=== PATIENT | male | born 1985 | race Caucasian/White ===

== ENCOUNTER 2019-03-05 17:08 | Outpatient (CLI) | payer OTHER, SELFPAY ==
--- NOTE | 2019-03-05 17:38 | XR_ITS ---
WS: [id number] LEFT ELBOW: 2 VIEW(S) TECHNIQUE: AP and lateral. HISTORY: LIMITED RANGE OF MOTION COMPARISON: None available. No acute fractures or dislocation. No joint effusion. Mild soft tissue edema along the medial epicondyle. No joint effusion. NOTE: Report was unsigned for reason: Ordering provider was edited. Original Signature date and time was: 03/06/19 0945 [facility] XR/XR elbow LT 2V [id number] IMPRESSION: 1. No fracture identified. 2. Soft tissue edema along the medial epicondyle. If pain continues consider f ollow-up radiographs in 5-7 days to evaluate for occult fracture.
== END 2019-03-05 17:09 | disposition home or self-care (01) ==
LOC: RAD 17:16
PROVIDERS: Visit Provider Family Medicine
DX: M25.522 Pain in left elbow (principal); M79.9 Soft tissue disorder, unspecified
CPT/HCPCS: 73070

== ENCOUNTER 2022-09-06 10:42 | Inpatient (IN) | payer MEDICAID, SELFPAY ==
[2022-09-06 10:54] VITALS: BP 142/89; PULSE 85; RESP 18; TEMP 37; O2SAT 99
--- NOTE | 2022-09-06 11:18 | PC.PHAR ---
pt states takes no rx or otc medications
[2022-09-06 11:38] LABS: Basophils # 0.1 10^3/uL (0.0-0.1); Basophils % 0.7 %; Eosinophils # 0.4 10^3/uL (0.0-0.8); Eosinophils % 4.9 %; Hematocrit 47.6 % (42.0-52.0); Hemoglobin 16.7 g/dL (11.7-16.6); Lymphocytes # 2.4 10^3/uL (0.8-4.8); Lymphocytes % 32.9 %; Mean Corpuscular HGB Conc 35.1 g/dL (30.0-36.0); Mean Corpuscular Hemoglobin 31.3 pg (28.0-34.0); Mean Corpuscular Volume 89.3 fl (80-94); Monocytes # 0.8 10^3/uL (0.2-0.9); Neutrophils # 3.69 10^3/uL (1.8-7.7); Neutrophils % 50.1 %; Nucleated Red Blood Cells % 0 %; Platelet Count 205 10^3/cmm (130-400); Red Blood Count 5.33 10^6/uL (4.1-5.3); Red Cell Distribution Width 13.3 % (12.1-15.1); White Blood Count 7.4 10^3/uL (4.0-10.0)
--- NOTE | 2022-09-06 11:47 | ED.C_ITS ---
HPI - Psych General: Chief Complaint: Psychiatric Symptoms Stated Complaint: mhe Time Seen by Provider: 09/06/22 11:02 History of Present Illness: Patient presents to the ER for depression and suicidal ideation. Patient's had multiple thoughts of it but does not have a plan. Patient is admitted drug user to help with his psychiatric illness. Patient should be on medicine but he is not taking it for years. Patient states after he gets done with an inpatient stay here he is going to treatment for his drug addiction to help get clean. Review of Systems General: Reports: 10 or more systems reviewed and unremarkable except in HPI and below PFSH ED PFSH: Family History Other Diabetes Social History Smoking and tobacco status: current every day smoker Alcohol intake: never Substance/Drug Use: current Physical Exam Const: COMMON NORMALS: no acute distress, average body habitus, patient oriented x3, no limitations, healthy appearing, alert and well nourished HENMT: COMMON NORMALS: normocephalic, atraumatic, hearing grossly normal bilaterally, external ears normal and moist oral mucous membranes HEAD & SCALP: normocephalic and atraumatic EXTERNAL EAR: Yes external ears normal Neck/C-Spine: COMMON NORMALS: full ROM, no lymphadenopathy, supple, no mening eal signs, no JVD and Thyroid normal THYROID: Thyroid normal Chest: COMMONS NORMALS: normal inspection of the chest and normal palpation of entire chest wall Resp: COMMON NORMALS: normal respiratory effort, No retractions, No use of accessory muscles and clear to auscultation bilaterally AUSCULTATION: clear to auscultation bilaterally Cardio: COMMON NORMALS: no JVD, regular rate, regular rhythm, S1 normal heart sound present, S2 normal heart sound present, No gallops present (Cardio), No clicks present (Cardio), No murmurs present (Cardio) and No rub (Cardio) RAT E: regular rate RHYTHM: regular rhythm HEART SOUNDS: S1 normal heart sound present and S2 normal heart sound present GI: COMMON NORMALS: Normal to inspection, nondistended, normoactive bowel sounds present, Soft to palpation, non-tender, No hepatosplenomegaly present and no masses PALPATION: Yes Soft to palpation and Yes No hepatosplenomegaly present : COMMON NORMALS: Yes no CVA tenderness BLADDER/KIDNEY EXAM: Yes no CVA tenderness Back/Pelvis: COMMON NORMALS: no CVA tenderness Neuro: COMMON NORMALS: patient oriented x3 SENSORIUM/ORIENTATION: Yes alert MENINGEAL SIGNS: Yes no meningeal signs Course Vital Signs: Vital signs: Vital Signs Temperature 98.6 F 09/06/22 10:54 Pulse Rate 85 09/06/22 10:54 Respiratory Rate 18 09/06/22 10:54 Blood Pressure 142/89 09/06/22 10:54 Pulse Oximetry 99 09/06/22 10:54 Oxygen Delivery Me thod Room Air 09/06/22 10:54 MDM - Psych Medical Decision Making Presents ER with complaints of suicidal ideation. Patient admits to having psychiatric illness and needing to be on medicine but had not taken it for couple years. Patient midst to self-medicating with methamphetamines and marijuana. Patient said is not helping anymore and he wants to go to treatment to get rehab and get help for psychiatric illness. Patient is suicidal but does not have a plan. Dr. Lam was consulted who agrees to take the patient in for further evaluation treatment Differential Diagnosis Likely suicidal ideation; Unlikely acute psychosis, chronic schizophrenia, bipolar disorder, depression, drug-induced psychotic disorder or acute anxiety Medical Records I reviewed the patient's medical records. Lab Data I reviewed the patient's lab results. 09/06/22 11:30 09/06/22 11:30 Laboratory Results WBC 7.4 10^3/uL (4.0-10.0) 09/06/22 11:30 RBC 5.33 10^6/uL (4.1-5.3) H 09/06/22 11:30 Hgb 16.7 g/dL (11.7-16.6) H 09/06/22 11:30 Hct 47.6 % (42.0-52.0) 09/06/22 11:30 MCV 89.3 fl (80-94) 09/06/22 11:30 MCH 31.3 pg (28.0-34.0) 09/06/22 11:30 MCHC 35.1 g/dL (30.0-36.0) 09/06/22 11:30 RDW 13.3 % (12.1-15.1) 09/06/22 11:30 Plt Count 205 10^3/cmm (130-400) 09/06/22 11:30 MPV 10.0 fL (7.4-10.4) 09/06/22 11:30 Neut % (Auto) 50.1 % 09/06/22 11:30 Lymph % (Auto) 32.9 % 09/06/22 11:30 [place] % (Auto) 11.0 % 09/06/22 11:30 Eos % (Auto) 4.9 % 09/06/22 11:30 Baso % (Auto) 0.7 % 09/06/22 11:30 Neut # (Auto) 3.69 10^3/uL (1.8-7.7) 09/06/22 11:30 Lymph # (Auto) 2.4 10^3/uL (0.8-4.8) 09/06/22 11:30 [place] # (Auto) 0.8 10^3/uL (0.2-0.9) 09/06/22 11:30 Eos # (Auto) 0.4 10^3/uL (0.0-0.8) 09/06/22 11:30 Baso # (Auto) 0.1 10^3/uL (0.0-0.1) 09/06/22 11:30 Nucleated RBC % (auto) 0 % 09/06/22 11:30 Nucleated RBCs # 0.0 /100WBC 09/06/22 11:30 Sodium 139 mmol/L (136-145) 09/06/22 11:30 Potassium 4.3 mmol/L (3.5-5.1) 09/06/22 11:30 Chloride 104 mmol/L (98-107) 09/06/22 11:30 Carbon Dioxide 25 mmol/L (22-29) 09/06/22 11:30 Anion Gap 14.3 (5-19) 09/06/22 11:30 BUN 11 mg/dL (6-20) 09/06/22 11:30 Creatinine 0.9 mg/dL (0.7-1.2) 09/06/22 11:30 GFR Calculation 96.0 mL/min (90-130) 09/06/22 11:30 Glucose 84 mg/dL (65-115) 09/06/22 11:30 Calculated Osmolality 287 mOsm/kg (285-295) 09/06/22 11:30 Calcium 9.2 mg/dL (8.5-10.5) 09/06/22 11:30 Total Bilirubin 0.4 mg/dL (0.15-1.2) 09/06/22 11:30 AST 19 U/L (0-40) 09/06/22 11:30 ALT 34 U/L (0-41) 09/06/22 11:30 Alkaline Phosphatase 104 U/L (40-130) 09/06/22 11:30 Total Protein 7.1 g/dL (6.6-8.7) 09/06/22 11:30 Albumin 4.3 g/dL (3.5-5.2) 09/06/22 11:30 Globulin 2.8 g/dL (1.3-4.6) 09/06/22 11:30 Salicylates < 0.3 mg/dL (3-10) L 09/06/22 11:30 Acetaminophen < 5.0 ug/mL (10-30) L 09/06/22 11:30 Ethyl Alcohol < 10 mg/dL (0-10) 09/06/22 11:30 Discharge Plan Discharge Patient Disposition: Admitted As Inpatient Clinical Impression: Suicidal ideation Condition: Stable Coding Level of Care Code ED [employer] [facility]
[2022-09-06 12:05] LABS: Alanine Aminotransferase 34 U/L (0-41); Albumin Level 4.3 g/dL (3.5-5.2); Alkaline Phosphatase 104 U/L (40-130); Anion Gap 14.3 (5-19); Aspartate Amino Transferase 19 U/L (0-40); Blood Urea Nitrogen 11 mg/dL (6-20); Calcium 9.2 mg/dL (8.5-10.5); Carbon Dioxide 25 mmol/L (22-29); Chloride 104 mmol/L (98-107); Globulin 2.8 g/dL (1.3-4.6); Glucose 84 mg/dL (65-115); Osmolality Calculated 287 mOsm/kg (285-295); Potassium 4.3 mmol/L (3.5-5.1); Sodium 139 mmol/L (136-145); Total Bilirubin 0.4 mg/dL (0.15-1.2); Total Protein 7.1 g/dL (6.6-8.7)
[2022-09-06 12:08] LABS: Acetaminophen < 5.0 ug/mL (10-30); Alcohol Level < 10 mg/dL (0-10); Salicylate < 0.3 mg/dL (3-10)
[2022-09-06] MEDS: LORazepam 1 mg Tablet PO (12:47)
[2022-09-06 15:25] VITALS: BP 119/75; PULSE 71; RESP 18; O2SAT 98
[2022-09-06 15:31] LABS: Add Urine Microscopic? NO; Charge for UA Resulting for Rev
[2022-09-06 15:38] LABS: Bilirubin Urine Neg (Negative); Blood Urine Neg (Negative); Glucose Urine UA Norm (Normal); Ketones Urine Negative (Negative); Leukocyte Esterase Urine Negative (Negative); Nitrate Urine Negative (Negative); Protein Urine Neg (Negative); Specific Gravity, Urine 1.025 (1.005-1.030); Urine Appearance Clear (CLEAR); Urine Color Yellow (Yellow); Urobilinogen Urine Norm (Negative); pH Urine 5 (5-7)
[2022-09-06 15:51] LABS: Amphetamines Screen Urine Positive (Negative); Barbiturates Screen Urine Negative (Negative); Benzodiazepines Screen Urine Negative (Negative); Cocaine Screen Urine Negative (Negative); Opiate Screen Urine Negative (Negative); PCP Screen Urine Negative (Negative); THC Screen Urine Negative (Negative)
[2022-09-06 15:56] VITALS: BP 111/75; PULSE 73; RESP 16; TEMP 36.6; O2SAT 98
--- NOTE | 2022-09-06 16:46 | PC.NURSE ---
PT ARRIVED TO OUR ED WITH THOUGHTS OF HARMING HIMSELF. PT ADMITS TO STRUGGLING WITH METH ABUSE. PT STATES HE HAS BEEN HAVING TROUBLE TRYING TO KEEP HIS ANXIETY UNDER CONTROL WHILE TRYING TO STOP USING. PT STATES THAT HE STOPPED USING MARIJUANA A FEW MONTHS AGO AND BELIEVES THIS IS THE REASON HIS ANXIETY IN WORSE. PT ALSO ENDORSES AH/VH AFTER AN ANXIETY ATTACK OR AT NIGHT.
[2022-09-06] MEDS: propranolol 20 mg Tablet PO (16:56)
--- NOTE | 2022-09-06 16:56 | PC.NURSE ---
PRN INDERAL 20 MG GIVEN PO PER PT C/O STATED ANXIETY
[2022-09-06 20:07] VITALS: BP 106/64; PULSE 63; RESP 18; TEMP 36.9; O2SAT 98
[2022-09-06] MEDS: trazodone 50 mg Tablet PO (21:40)
[2022-09-06] MEDS: ibuprofen 600 mg Tablet PO (21:40)
[2022-09-07] MEDS: propranolol 20 mg Tablet PO ×2 (02:00→22:07)
[2022-09-07 06:00] VITALS: BP 97/63; PULSE 69; RESP 18; TEMP 36.6; O2SAT 99
[2022-09-07] MEDS: OLANZapine 5 mg ODT PO ×2 (10:03→16:14)
--- NOTE | 2022-09-07 11:49 | P.NPUHP_ITS ---
Providers/Chief Complaint Admitting Physician: Reginaldo Scales MD Chief Complaint: hallucinations HPI NPU History of Present Illness Erick Garcia is a 37 year old white male who had presented to the em ergency department with complaints of depression, auditory hallucinations, and infrequent suicidal thoughts. The patient was admitted to the neuropsychiatric unit for further evaluation and treatment. The patient reports that he has been using methamphetamine for the past 12 years. He describes every day use and states that he has had significant problems from its continued use. He states that he has been hearing voices telling him to run away for several months. He also reports having had increased panic attacks beginning approximately 2 years ago. He states that these panic attacks are uncued and present with associated chest pain, shortness of breath ,difficulties with breathing, numbing and tingling in his fingers and strong feelings as if he were going to . He reports these events last approximately 20 to 30 minutes. He also endorses having periods of intense paranoia associated with his methamphetamine use. Furthermore, he endorses having worsening depression with increased feelings of hopelessness and worthlessness with complaints of low energy and low motivation that has been exacerbated by his chronic use of methamphetamine. He reports having an extended history of problems with ADHD and endorses a past history of ADHD symptoms including inattention and difficulties with poor frustration tolerance and completing tasks in a timely fashion. He reports being historically disorganized and frequently bored. He had reported that he had felt overwhelmed recently and stated that he needed to help immediately to avoid eventually harming himself or killing himself. Inpatient psychiatric history:None reported Outpatient psychiatric history: He had reported having treatment for ADHD in his early adolescence with medication trials including extended release Ritalin and Adderall and short acting Ritalin in the past. He reported that he discontinued these medications many years ago. Drug and alcohol history: He had reported chronic marijuana use for several years beginning in adolescence and reported a history of methamphetamine use beginning approximately 12 years ago. He denies any alcohol history. He reports no prior history of drug or alcohol treatment either inpatient or outpatient. Allergies: Bactrim, trimethoprim, BuSpar, hydroxyzine Surgeries: Left biceps tendon tear, gallbladder removal Medical history: None reported Medications: None Legal history: He had reported that he had been caught with methamphetamine in his urine that had led to him receiving a 7 to 8-day incarceration as children and families are involved in his care of his children. He has no history of nursing home time reported. Developmental history: He has a history of a learning disability Social history: The patient grew up in [place] [facility] [place] and was raised by his medardo narinder parents. He has 3 siblings 1 of whom had when the patient was only 10 years old. He had reported no history of sexual physical or emotional abuse. He had reported having problems with getting into fights in school and stated that he had been treated for ADHD. 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 This is the patient's first marriage. Meds NPU Home Medications Medication Instructions Recorded Confirmed Last Taken Type No Known Home Medications 09/06/22 09/06/22 Unknown History Allergies Allergy/AdvReac Type Severity Reaction Status Date / Time sulfamethoxazole Allergy Unknown UNKNOWN Verified 02/24/19 17:42 [From Bactrim] trimethoprim [From Bactrim] Allergy Unknown UNKNOWN Verified 02/24/19 17:42 buspirone [From BuSpar] Allergy ALGY-Hives Verified 09/06/22 11:17 hydroxyzine Allergy ALGY-Hives Verified 09/06/22 11:17 PFSH NPU PFSH: Family History Other Diabetes Social History Smoking and tobacco status: current every day smoker Alcohol intake: never Substance/Drug Use: current Mental Status Exam MSE Comments: This is a casually dressed white male who appeared his stated age. His gait was within normal limits and his hygiene was fair. There was no evidence of any abnormal involuntary motor movements tics or tremors appreciated. He had fair eye contact. He had described his mood as depressed. His affect was restricted in range and mood congruent. There was evidence of moderate psychomotor retardation noted. His speech was monotone in quality and normal in regards to rate and volume. His attention span was poor. He had endorsed passive suicidal ideation. He denied any homicidal ideation. He had endorsed auditory hallucinations telling him to run away. He did not appear to be responding to internal stimuli actively. There was no clear evidence of delusional thinking. His recent and remote memory appeared grossly intact. His insight was limited. His judgment was poor. His impulse control appeared poor as well. Vitals/I&O/Wt Last Vital Signs Temp 97.9 F 09/07/22 06:00 Pulse 69 09/07/22 06:00 Resp 18 09/07/22 06:00 BP 97/63 09/07/22 06:00 Pulse Ox 99 09/07/22 06:00 O2 Del Method Room Air 09/06/22 15:57 Data NPU 09/06/22 11:30 09/06/22 11:30 A&P Assessment and plan (1) Methamphetamine-induced psychotic disorder: (2) Suicidal ideation: (3) Methamphetamine dependence: (4) Methamphetamine-induced depressive disorder: (5) Anxiety disorder, unspecified: Plan 37-year-old white male with extended history of methamphetamine abuse with significant psychiatric symptoms that appear to be manifested from chronic use including depression anxiety and auditory hallucinations. He would likely benefit from continued inpatient hospital stay. 1. Engage patient in individual, group and milieu therapy. ?2.Recommend sober living treatment at the highest level of care to which the patient is willing to commit. 3.Continue q-15 minute checks for safety.? 4. Initiate abilify 5mg daily to target hallucinations. Will initiate lexapro 10mg to target anxiety as well beginning tommorow. Attestations NPU 2 Medical Necessity Statement*: Inpatient hospitalization is medically necessary and deemed to be the clinically appropriate intervention at this time. We will monitor and initiate medications while making changes as indicated. He will be in the hospital for over 2 midnights. His likely length of stay is 5 to 7 days. Coding Level of Care Code Acute Code for [facility] Fw Diagnoses Methamphetamine-induced psychotic disorder F15.959 Suicidal ideation R45.851 Methamphetamine dependence F15.20 Methamphetamine-induced depressive disorder F15.94 Anxiety disorder, unspecified F41.9
[2022-09-07 14:00] VITALS: BP 110/63; PULSE 64; RESP 16; TEMP 36.6; O2SAT 98
[2022-09-07] MEDS: ARIPiprazole 10 mg Tablet 5 MG PO (16:06)
[2022-09-07 20:42] VITALS: BP 109/67; PULSE 90; RESP 18; TEMP 36.8; O2SAT 98
[2022-09-07] MEDS: trazodone 50 mg Tablet PO (22:07)
[2022-09-07] MEDS: ibuprofen 600 mg Tablet PO (22:07)
[2022-09-08 06:00] VITALS: BP 104/67; PULSE 62; RESP 18; O2SAT 97
[2022-09-08] MEDS: ARIPiprazole 10 mg Tablet 5 MG PO (08:36)
[2022-09-08] MEDS: propranolol 20 mg Tablet PO (08:38)
[2022-09-08] MEDS: sertraline 50 mg Tablet 25 MG PO (12:52)
[2022-09-08] MEDS: CLONazepam 0.5 mg Tablet 0.25 MG PO ×2 (12:52→17:39)
[2022-09-08 14:00] VITALS: BP 106/71; PULSE 72; RESP 16; TEMP 36.8; O2SAT 98
--- NOTE | 2022-09-08 14:06 | W.PM.NPUPNS ---
Subjective NPU Subjective: The patient is a 37-year-old white male with a history of methamphetamine induced depression and methamphetamine induced psychotic disorder admitted with hallucinations along with depressed mood. He had continue to report extended history of panic attacks. He had reported that the panic attacks were uncued. He denied any other comorbid substance use other than methamphetamine. He reported no cravings at this time. He had reported that the auditory hallucinations were still present. He had endorsed that he felt depressed and continued to have infrequent thoughts of suicide. The patient was able to attend groups and reported good motivation to get help for his longstanding problems. Mental Status Exam MSE Comments: This is a casually dressed white male who appeared his stated age. His gait was within normal limits and his hygiene was fair. There was no evidence of any abnormal involuntary motor movements tics or tremors appreciated. He had fair eye contact. His mood was described as depressed. His affect was restricted in range and mood congruent. There was evidence of moderate psychomotor retardation noted. His speech was monotone in quality and normal in regards to rate and volume. His attention span was fair. He had endorsed passive suicidal ideation. He denied any homicidal ideation. He continued to endorse auditory hallucinations. He did not appear to be responding to internal stimuli actively. There was no clear evidence of delusional thinking. His recent and remote memory appeared grossly intact. His insight was limited. His judgment was poor. His impulse control appeared poor as well. Vitals/I&O/Wt Last Vital Signs Temp 98.3 F 09/07/22 20:42 Pulse 62 09/08/22 06:00 Resp 18 09/08/22 06:00 BP 104/67 09/08/22 06:00 Pulse Ox 97 09/08/22 06:00 O2 Del Method Room Air 09/07/22 20:42 Weight last 48 hrs Weight 122.47 kg Data NPU 09/06/22 11:30 09/06/22 11:30 A&P Assessment and plan (1) Methamphetamine-induced psychotic disorder: (2) Suicidal ideation: (3) Methamphetamine dependence: (4) Methamphetamine-induced depressive disorder: (5) Anxiety disorder, unspecified: Plan 37-year-old white male with extended history of methamphetamine abuse with significant psychiatric symptoms that appear to be manifested from chronic use including depression anxiety and auditory hallucinations. He would likely benefit from continued inpatient hospital stay. 1. Engage patient in individual, group and milieu therapy. ?2.Recommend sober living treatment at the highest level of care to which the patient is willing to commit. 3.Continue q-15 minute checks for safety.? 4. Continue abilify 5mg daily to target hallucinations. Started Zoloft 25mg today to target depression and anxiety and added klonopin .25mg bid to target anxiety. Attestations NPU Medical Necessity Statement*: Inpatient hospitalization is medically necessary and deemed to be the clinically appropriate intervention at this time. We will monitor and initiate medications while making changes as indicated. His likely length of stay is 5 to 7 days. Coding Level of Care Code Acute Code for [facility] Fwd Diagnoses Methamphetamine-induced psychotic disorder F15.959 Suicidal ideation R45.851 Methamphetamine dependence F15.20 Methamphetamine-induced depressive disorder F15.94 Anxiety disorder, unspecified F41.9
[2022-09-08 20:11] VITALS: BP 111/16; PULSE 80; RESP 16; TEMP 36.7; O2SAT 97
[2022-09-09 06:00] VITALS: BP 116/76; PULSE 70; RESP 18; O2SAT 99
[2022-09-09] MEDS: ARIPiprazole 10 mg Tablet 5 MG PO (09:01)
[2022-09-09] MEDS: CLONazepam 0.5 mg Tablet 0.25 MG PO (09:02)
[2022-09-09] MEDS: sertraline 50 mg Tablet 25 MG PO (09:05)
[2022-09-09] MEDS: propranolol 20 mg Tablet PO (12:35)
[2022-09-09 14:00] VITALS: BP 103/68; PULSE 60; RESP 17; TEMP 36.7; O2SAT 97
--- NOTE | 2022-09-09 15:53 | P.NPUPN_ITS ---
Subjective NPU Subjective: The patient is a 37-year-old white male with a history of methamphetamine induced depression and methamphetamine induced psychotic disorder admitted with hallucinations along with depressed mood. Patient had reported feeling better. He had reported that his voices had diminished with the initiation of Abilify. He had stated that he was ready to consider the inpatient substance treatment program near his home. He had reported no panic attacks with the initiation of Klonopin at a low dose. He had continued report chronic anxiety and stated that his anxiety often led him to use methamphetamine in the past. Mental Status Exam MSE Comments: This is a casually dressed white male who appeared his stated age. His gait was within normal limits and his hygiene was fair. There was no evidence of any abnormal involuntary motor movements tics or tremors appreciated. He had fair eye contact. His mood was described as better. His affect was restricted in range and mood incongruent. There was evidence of moderate psychomotor retardation noted. His speech was monotone in quality and normal in regards to rate and volume. His attention span was fair. He denies any suicidal ideation today. He denied any homicidal ideation. He had continued to endorse intermittent auditory hallucinations. He did not appear to be responding to internal stimuli today. There was no clear evidence of delusional thinking. His recent and remote memory appeared grossly intact. His insight was limited. His judgment was poor. His impulse control appeared to be improving. Vitals/I&O/Wt Last Vital Signs Temp 98.0 F 09/09/22 14:00 Pulse 60 09/09/22 14:00 Resp 17 09/09/22 14:00 BP 103/68 09/09/22 14:00 Pulse Ox 97 09/09/22 14:00 O2 Del Method Room Air 09/09/22 06:00 Weight last 48 hrs Weight 122.47 kg Data NPU 09/06/22 11:30 09/06/22 11:30 A&P Assessment and plan (1) Methamphetamine-induced psychotic disorder: (2) Suicidal ideation: (3) Methamphetamine dependence: (4) Methamphetamine-induced depressive disorder: (5) Anxiety disorder, unspecified: Plan 37-year-old white male with extended history of methamphetamine abuse with significant psychiatric symptoms that appear to be manifested from chronic use including depression anxiety and auditory hallucinations. He would likely benefit from continued inpatient hospital stay. 1. Engage patient in individual, group and milieu therapy. ?2.Recommend sober living treatment at the highest level of care to which the patient is willing to commit. 3.Continue q-15 minute checks for safety.? 4. Increase abilify 10mg daily to target hallucinations. Increase zoloft to 50mg daily to target depression and anxiety and continue klonopin .25mg bid to target anxiety. Attestations NPU Medical Necessity Statement*: Inpatient hospitalization is medically necessary and deemed to be the clinically appropriate intervention at this time. We will monitor and initiate medications while making changes as indicated. His likely length of stay is 3-5 days. Coding Level of Care Code Acute Code for [facility] Fwd Diagnoses Methamphetamine-induced psychotic disorder F15.959 Suicidal ideation R45.851 Methamphetamine dependence F15.20 Methamphetamine-induced depressive disorder F15.94 Anxiety disorder, unspecified F41.9
[2022-09-09] MEDS: trazodone 50 mg Tablet PO (20:07)
[2022-09-09 20:55] VITALS: BP 113/68; PULSE 72; RESP 15; TEMP 36.7; O2SAT 96
[2022-09-10 06:00] VITALS: BP 112/72; PULSE 67; RESP 16; O2SAT 99
[2022-09-10] MEDS: CLONazepam 0.5 mg Tablet 0.25 MG PO (08:54)
[2022-09-10] MEDS: ARIPiprazole 10 mg Tablet PO (08:54)
[2022-09-10] MEDS: sertraline 50 mg Tablet PO (08:55)
[2022-09-10] MEDS: propranolol 20 mg Tablet PO (12:54)
--- NOTE | 2022-09-10 13:22 | P.NPUDS_ITS ---
Diagnoses at Discharge Discharge Diagnosis (1) Methamphetamine-induced psychotic disorder: Status: Acute (2) Suicidal ideation: Status: Acute (3) Methamphetamine dependence: Status: Acute (4) Methamphetamine-induced depressive disorder: Status: Acute (5) Anxiety disorder, unspecified: Status: Acute Reason for Visit Reason for Visit: hallucinations Brief History: HPI NPU History of Present Illness Erick Garcia is a 37 year old white male who had presented to the emergency department with complaints of depression, auditory hallucinations, and infrequent suicidal thoughts.? The patient was admitted to the neuropsychiatric unit for further evaluation and treatment.? The patient reports that he has been using methamphetamine for the past 12 years.? He describes every day use and states that he has had significant problems from its continued use.? He states that he has been hearing voices telling him to run away for several months.? He also reports having had increased panic attacks beginning approximately 2 years ago.? He states that these panic attacks are uncued and present with associated chest pain, shortness of breath ,difficulties with breathing, numbing and tingling in his fingers and strong feelings as if he were going to .? He reports these events last approximately 20 to 30 minutes.? He also endorses having periods of intense paranoia associated with his methamphetamine use.? Furthermore, he endorses having worsening depression with increased feelings of hopelessness and worthlessness with complaints of low energy and low motivation that has been exacerbated by his chronic use of methamphetamine.? He reports having an extended history of problems with ADHD and endorses a past history of ADHD symptoms including inattention and difficulties with poor frustration tolerance and completing tasks in a timely fashion.? He reports being historically disorganized and frequently bored.? He had reported that he had felt overwhelmed recently and stated that he needed to help immediately to avoid eventually harming himself or killing himself. Inpatient psychiatric history:None reported Outpatient psychiatric history: He had reported having treatment for ADHD in his early adolescence with medication trials including extended release Ritalin and Adderall and short acting Ritalin in the past.? He reported that he discontinued these medications many years ago. Drug and alcohol history: He had reported chronic marijuana use for several years beginning in adolescence and reported a history of methamphetamine use beginning approximately 12 years ago.? He denies any alcohol history.? He reports no prior history of drug or alcohol treatment either inpatient or outpatient. Allergies: Bactrim, trimethoprim, BuSpar, hydroxyzine Surgeries: Left biceps tendon tear, gallbladder removal Medical history: None reported Medications: None Legal history: He had reported that he had been caught with methamphetamine in his urine that had led to him receiving a 7 to 8-day incarceration as children and families are involved in his care of his children.? He has no history of half-way time reported. Developmental history: He has a history of a learning disability Social history: The patient grew up in [facility] and was raised by his biological parents.? He has 3 siblings 1 of whom had when the patient was only 10 years old.? He had reported no history of sexual physical or emotional abuse.? He had reported having problems with getting into fights in school and stated that he had been treated for ADHD.? 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 This is the patient's first marriage. Hospital Course Hospital Course During the hospitalization, the patient had routine laboratory studies which were within normal limits except for a few outliers.? Additionally, there was a general medical evaluation which was also within normal limits and revealed no new acute processes.? At the time of discharge, lethality was denied and psychosis was resolving.? Mood and anxiety were well managed.? The patient endorsed a plan to avoid all drugs of abuse and follow up with the aftercare recommendations of the treatment team.? The patient was evaluated and deemed to be absent credible lethality and had achieved the maximum benefit from an inpatient hospitalization, and so was discharged. He responded well to abilify 10mg daily to target psychosis and zoloft was titrated up to 50mg daily to target anxiety and depression. It was recommended that this medication be increased slowly on an outpatient basis under medical supervision. Mental Status Exam MSE Comments: This is a casually dressed white male who appeared his stated age. His gait was within normal limits and his hygiene was fair. There was no evidence of any abnormal involuntary motor movements tics or tremors appreciated. He had fair eye contact. His mood was described as better. His affect remained slightly restricted. There was less prominent psychomotor slowing. His speech was normal in quality and normal in regards to rate and volume. His attention span was fair. He denies any suicidal ideation today. He denied any homicidal ideation. He did not appear to be responding to internal stimuli today. There was no clear evidence of delusional thinking. His recent and remote memory a ppeared grossly intact. His insight was improving. His judgment was fair. His impulse control appeared to be improving. Discharge Data Studies Completed and Pending: Laboratory Results WBC 7.4 10^3/uL (4.0- 10.0) 09/06/22 11:30 RBC 5.33 10^6/uL (4.1 -5.3) H 09/06/22 11:30 Hgb 16.7 g/dL (11.7-1 6.6) H 09/06/22 11:30 Hct 47.6 % (42.0-52.0 ) 09/06/22 11:30 MCV 89.3 fl (80-94) 09/06/22 11:30 MCH 31.3 pg (28.0-34. 0) 09/06/22 11:30 MCHC 35.1 g/dL (30.0-3 6.0) 09/06/22 11:30 RDW 13.3 % (12.1-15.1 ) 09/06/22 11:30 Plt Count 205 10^3/cmm (130 -400) 09/06/22 11:30 MPV 10.0 fL (7.4-10.4 ) 09/06/22 11:30 Neut % (Auto) 50.1 % 09/06/22 11:30 Lymph % (Auto) 32.9 % 09/06/22 11:30 [place] % (Auto) 11.0 % 09/06/22 11:30 Eos % (Auto) 4.9 % 09/06/22 11:30 Baso % (Auto) 0.7 % 09/06/22 11:30 Neut # (Auto) 3.69 10^3/uL (1.8 -7.7) 09/06/22 11:30 Lymph # (Auto) 2.4 10^3/uL (0.8- 4.8) 09/06/22 11:30 [place] # (Auto) 0.8 10^3/uL (0.2- 0.9) 09/06/22 11:30 Eos # (Auto) 0.4 10^3/uL (0.0- 0.8) 09/06/22 11:30 Baso # (Auto) 0.1 10^3/uL (0.0- 0.1) 09/06/22 11:30 Nucleated RBC % (a uto) 0 % 09/06/22 11:30 Nucleated RBCs # 0.0 /100WBC 09/06/22 11:30 Sodium 139 mmol/L (136-1 45) 09/06/22 11:30 Potassium 4.3 mmol/L (3.5-5 .1) 09/06/22 11:30 Chloride 104 mmol/L (98-10 7) 09/06/22 11:30 Carbon Dioxide 25 mmol/L (22-29) 09/06/22 11:30 Anion Gap 14.3 (5-19) 09/06/22 11:30 BUN 11 mg/dL (6-20) 09/06/22 11:30 Creatinine 0.9 mg/dL (0.7-1. 2) 09/06/22 11:30 GFR Calculation 96.0 mL/min (90-1 30) 09/06/22 11:30 Glucose 84 mg/dL (65-115) 09/06/22 11:30 Calculated Osmolal ity 287 mOsm/kg (285- 295) 09/06/22 11:30 Calcium 9.2 mg/dL (8.5-10 .5) 09/06/22 11:30 Total Bilirubin 0.4 mg/dL (0.15-1 .2) 09/06/22 11:30 AST 19 U/L (0-40) 09/06/22 11:30 ALT 34 U/L (0-41) 09/06/22 11:30 Alkaline Phosphata se 104 U/L (40-130) 09/06/22 11:30 Total Protein 7.1 g/dL (6.6-8.7 ) 09/06/22 11:30 Albumin 4.3 g/dL (3.5-5.2 ) 09/06/22 11:30 Globulin 2.8 g/dL (1.3-4.6 ) 09/06/22 11:30 Urine Color Yellow (Yellow) 09/06/22 15:23 Urine Appearance Clear (CLEAR) 09/06/22 15:23 Urine pH 5 (5-7) 09/06/22 15:23 Ur Specific Gravit y 1.025 (1.005-1.0 30) 09/06/22 15:23 Urine Protein Neg (Negative) 09/06/22 15:23 Urine Glucose (UA) Norm (Normal) 09/06/22 15:23 Urine Ketones Negative (Negati ve) 09/06/22 15:23 Urine Blood Neg (Negative) 09/06/22 15:23 Urine Nitrate Negative (Negati ve) 09/06/22 15:23 Urine Bilirubin Neg (Negative) 09/06/22 15:23 Urine Urobilinogen Norm mg/dL (Negat catrina) 09/06/22 15:23 Ur Leukocyte Lyndsey ase Negative (Negati ve) 09/06/22 15:23 Salicylates < 0.3 mg/dL (3-10 ) L 09/06/22 11:30 Urine Opiates Scre en Negative ng/mL (N egative) 09/06/22 15:23 Acetaminophen < 5.0 ug/mL (10-3 0) L 09/06/22 11:30 Ur Barbiturates Sc reen Negative ng/mL (N egative) 09/06/22 15:23 Ur Phencyclidine S crn Negative ng/mL (N egative) 09/06/22 15:23 Ur Amphetamines Sc reen Positive ng/mL (N egative) H 09/06/22 15:23 U Benzodiazepines Scrn Negative ng/mL (N egative) 09/06/22 15:23 Urine Cocaine Scre en Negative ng/mL (N egative) 09/06/22 15:23 U Marijuana (THC) Screen Negative ng/mL (N egative) 09/06/22 15:23 Ethyl Alcohol < 10 mg/dL (0-10) 09/06/22 11:30 Vitals: Last Vital Signs Temp 98.1 F 09/09/22 20:55 Pulse 67 09/10/22 06:00 Resp 16 09/10/22 06:00 BP 112/72 09/10/22 06:00 Pulse Ox 99 09/10/22 06:00 O2 Del Method Room Air 09/10/22 06:00 Discharge Plan Discharge Patient Disposition: Home Condition: Stable Prescriptions: New aripiprazole 10 mg Tablet 10 mg PO DAILY 30 Days Qty: 30 1RF sertraline 50 mg Tablet 50 mg PO DAILY 30 Days Qty: 30 1RF Abilify 10 mg tablet 10 mg PO DAILY Qty: 30 0RF Zoloft 100 mg tablet 50 mg PO DAILY Qty: 15 0RF Discharge Orders: Discharge Order (Routine); Ordered 09/10/22 Ordered By: Reginaldo Scales Referrals: [facility] [Other] - 09/10/22 [facility] [Other] - 1-3 days (You have been referred. ) [facility] [Other] - 4-7 days (Will be calling with appointment. ) Discharge Diet: Usual diet Discharge Activity: Resume usual activity Patient Instructions: Depression (DC), Suicide Prevention (DC), Opioid Safety Discharge Attestations NPU Time Spent in Discharge Care*: less than 30 min Specific Discharge Activities: Specific discharge activities: educating patient and educating and/or supporting family/caregiver Coding Level of Care Code Acute Chg FW DC note Diagnoses Methamphetamine-induced psychotic disorder F15.959 Suicidal ideation R45.851 Methamphetamine dependence F15.20 Methamphetamine-induced depressive disorder F15.94 Anxiety disorder, unspecified F41.9
[2022-09-10 13:27] VITALS: BP 112/72; PULSE 67; RESP 16; O2SAT 99
--- NOTE | 2022-09-10 14:21 | PC.NURSE ---
written discharge instruction discussed and left with patient. pt spouse here to black pickler pt for discharge in pov.
== END 2022-09-10 14:22 | disposition home or self-care (01) | DRG 897 ==
LOC: ER 15:09 → NP 15:39
PROVIDERS: Admitting Provider Psychiatry & Neurology Psychiatry; Emergency Provider Emergency Medicine; Visit Provider Psychiatry & Neurology Psychiatry
DX: F15.151 Other stimulant abuse with stimulant-induced psychotic disorder with hallucinations (principal); R45.851 Suicidal ideations; F32.A Depression, unspecified; F41.9 Anxiety disorder, unspecified; F17.200 Nicotine dependence, unspecified, uncomplicated
CPT/HCPCS: 36415; 80053; 80306; 80307; 81003; 85025; 97150; 97165; 99238; 99285

== ENCOUNTER → 2022-10-28 13:02 | Outpatient (BNVA) | payer BC, SELFPAY | PROVIDERS: Visit Provider Registered Nurse | DX: Z79.899 Other long term (current) drug therapy (principal); F29 Unspecified psychosis not due to a substance or known physiological condition; F32.A Depression, unspecified; F41.9 Anxiety disorder, unspecified; G47.00 Insomnia, unspecified | CPT/HCPCS: 80053; 80061; 82306; 82607; 83036; 84443; 85025 ==

== ENCOUNTER 2023-01-02 18:06 | Emergency (ER) | payer BC, MEDICAID, SELFPAY ==
[2023-01-02 18:13] VITALS: BP 126/76; PULSE 85; TEMP 36.6; O2SAT 98; BMI 41.0
--- NOTE | 2023-01-02 18:22 | XRR_ITS ---
PROCEDURE INFORMATION: Exam: XR Right Ankle Exam date and time: 01/02/2023 6:33 PM Age: 37 years old Clinical indication: Injury or trauma; Fall; Other: RT ankle pain; Patient HX: RT lateral ankle pain/swelling post twisting injury TECHNIQUE: Imaging protocol: Radiologic exam of the right ankle. Views: 3 or more views. COMPARISON: No relevant prior studies available. FINDINGS: Bones/joints: No fracture identified. Soft tissues: Soft tissue swelling along the lateral and anterior aspect of the ankle. XR/XR ankle RT min 3V* [id number] IMPRESSION: 1. No fracture identified. 2. Soft tissue swelling along the lateral and anterior aspect of the ankle.
--- NOTE | 2023-01-02 18:51 | ED_ITS ---
HPI - Extremity Problem General: Chief complaint: Extremity Injury, Lower Stated complaint: possible broken right leg Time Seen by Provider: 01/02/23 18:38 Source: patient Mode of arrival: ambulatory Limitations: no limitations History of Present Illness: 37-year-old male states he was playing basketball roughly an hour ago he states he did came down twisted his right ankle. States he has pain in that lateral ankle along with swelling he rates the pain a 7 out of 10 states he has not been able to bear any weight on it. Denies any other injuries. Associated symptoms: Deny chest pain, fever(s) or rash Review of Systems Const: Denies: fever(s) or chills ENMT: Denies: throat pain or dental pain Card: Denies: chest pain Resp: Denies: dyspnea GI: Denies: abdominal pain, nausea, vomiting or diarrhea Musc: Reports: extremity pain; Denies: neck pain or back pain Skin/Breast: Denies: rash Neuro: Denies: headache(s) PFSH ED PFSH: Medical History Depression Frequent headaches YUDY (generalized anxiety disorder) Hypersomnia Psychiatric care Psychosis Snores Family History Other Diabetes Social History Smoking and tobacco/nicotine status: current every day tobacco/nicotine user Alcohol intake: never Substance/Drug Use: current Physical Exam Const: COMMON NORMALS: no acute distress, patient oriented x3 and healthy appearing HENMT: COMMON NORMALS: normocephalic and atraumatic HEAD & SCALP: normocephalic and atraumatic Neck/C-Spine: COMMON NORMALS: full ROM and supple Chest: COMMONS NORMALS: normal inspection of the chest Resp: COMMON NORMALS: normal respiratory effort Extremity: COMMON NORMALS: full ROM NARRATIVE EXTREMITY EXAM: Swelling noted to right lateral ankle with tenderness to touch Neuro: COMMON NORMALS: patient oriented x3, moves all extremities and no focal motor deficits Psych: COMMON NORMALS: mental status grossly normal, Normal thought process present and cooperative THOUGHT PROCESS: Normal thought process present Skin: COMMON NORMALS: no rashes or lesions noted and no wounds GENERAL SKIN EXAM: no rashes or lesions noted Course Vital Signs: Vital signs: Vital Signs Temperature 97.9 F 01/02/23 18:13 Pulse Rate 85 01/02/23 18:13 Blood Pressure 126/76 01/02/23 18:13 Pulse Oximetry 98 01/02/23 18:13 Oxygen Delivery Me thod Room Air 01/02/23 18:13 MDM - Extremity (Nontraumatic) Medical Decision Making Patient presents here with ankle sprain is quite swollen he is unable to bear weight will place him in a splint along with crutches he is to weight-bear as tolerated we will get him follow-up with podiatry Medical Records I reviewed the patient's medical records. XR interpretation done by ED provider, pending radiology final review ED provider radiology interpretation(s): X-ray right ankle no obvious fracture Discharge Plan Discharge Patient Disposition: Home Clinical Impression: Ankle sprain and strain Condition: Stable Prescriptions: New Naprosyn 500 mg tablet 500 mg PO BID PRN (Reason: pain) Qty: 20 0RF No Action aripiprazole 10 mg tablet 10 mg PO DAILY 30 Days Qty: 30 0RF propranolol 10 mg tablet 10 mg PO BID PRN (Reason: anxiety) Qty: 60 0RF mirtazapine 7.5 mg tablet 7.5 mg PO .at bedtime Qty: 30 0RF Discharge Orders: Discharge ED (Routine); Ordered 01/02/23 Ordered By: Beni Hawkins Discharge Diet: Advance as tolerated Discharge Activity: Increase activity as tolerated Patient Instructions: Ankle Sprain (ED) Coding Level of Care Code ED It [employer] [facility]
[2023-01-02] MEDS: HYDROcodone-acetaminophen 5-325 mg Tablet 1 TAB PO (18:57)
--- NOTE | 2023-01-03 10:46 | DCPLANNER ---
Message was sent to podiatry for an ankle sprain on 01/03 at 1156. Clinic to contact patient
== END 2023-01-02 19:11 | disposition home or self-care (01) ==
PROVIDERS: Emergency Provider Emergency Medicine
DX: S93.401A Sprain of unspecified ligament of right ankle, initial encounter (principal); S96.911A Strain of unspecified muscle and tendon at ankle and foot level, right foot, initial encounter; Z72.0 Tobacco use; X50.1XXA Overexertion from prolonged static or awkward postures, initial encounter; Y93.67 Activity, basketball
CPT/HCPCS: 73610; 99283; E0114

== ENCOUNTER → 2023-01-05 13:20 | Outpatient (BNVA) | payer BC, MEDICAID, SELFPAY | PROVIDERS: Visit Provider Podiatrist Foot & Ankle Surgery | DX: S86.001A Unspecified injury of right Achilles tendon, initial encounter; S92.034A Nondisplaced avulsion fracture of tuberosity of right calcaneus, initial encounter for closed fracture; S92.154A Nondisplaced avulsion fracture (chip fracture) of right talus, initial encounter for closed fracture; X50.1XXA Overexertion from prolonged static or awkward postures, initial encounter; Y93.67 Activity, basketball | CPT/HCPCS: 73610 ==

== ENCOUNTER 2023-01-12 14:29 | Outpatient (CLI) | payer BC, MEDICAID, SELFPAY ==
--- NOTE | 2023-01-12 14:30 | MRR_ITS ---
PROCEDURE INFORMATION: Exam: MR Right Lower Extremity Joint Without Contrast; Ankle Exam date and time: 01/12/2023 2:55 PM Age: 37 years old Clinical indication: Injury or trauma; Other: Injured playing basketball; Sprain or strain; Ankle; Right; Additional info: Evaluate achilles tendon, patient had an injury to RT ankle TECHNIQUE: Imaging protocol: Magnetic resonance imaging of the right lower extremity without contrast. Exam focused on the ankle. COMPARISON: CR XR ankle RT min 3V* [id number] 01/05/2023 1:26 PM FINDINGS: Bones/joints: Motion degradation. A small area of signal abnormality of the distal fibula consistent with fracture. A small area of increased T2 signal near the medial malleolus margin. Area of increased T2 signal of the talus medially and of the calcaneus medially and sustentaculum tale I. Likely a small area of signal abnormality of the posterior cuboid bone and base of 5th metatarsal bone. Ankle joint effusion. Partially loculated heterogeneous mixed signal fluid at the ankle laterally which could reflect complex lateral extension of joint effusion versus subcutaneous oval hematoma. LIGAMENTS: Distal tibiofibular syndesmosis: Unremarkable. No tear. Anterior talofibular ligament: Unremarkable. No tear. Posterior talofibular ligament: Unremarkable. No tear. Calcaneofibular ligament: Unremarkable. No tear. Deltoid ligament complex: Unremarkable. No tear. TENDONS: Flexor tendons of foot: Fluid within flexor hallucis longus tendon sheath. Fluid within flexor digitorum longus tendon sheath. Tibialis posterior tendon: Fluid within posterior tibial tendon sheath. Peroneal tendons: There is minimal fluid within the peroneal tendon sheath. Extensor tendons of foot: Unremarkable as visualized. Tibialis anterior tendon: Unremarkable as visualized. Achilles tendon: Unremarkable as visualized. Tarsal canal (Sinus tarsi): Unremarkable. Normal signal of the fat. Tarsal tunnel: Unremarkable. Soft tissues: Diffuse circumferential soft tissue edema. Plantar fascia: Plantar fascia is unremarkable. MR/MR ankle RT wo con* [id number] IMPRESSION: 1. Fracture cortical margin of the distal fibula with residual marrow reaction. 2. Diffuse soft tissue edema with ankle joint effusion probably posttraumatic. 3. Oval soft tissue fluid collection laterally which could reflect lateral extension of loculated or complex hemorrhagic effusion versus soft tissue hematoma. 4. Areas of microtrabecular fracture and reactive marrow signal versus areas of traumatic fracture within the medial malleolus, medial talus, medial calcaneus. 5. Suspect fracture of the cuboid bone posteriorly and reactive marrow signal or subtle area of fracture of the base of 5th metatarsal bone. 6. Tenosynovitis of posterior tibial, flexor digitorum longus and flexor hallucis longus tendon sheath.
== END 2023-01-12 14:30 | disposition home or self-care (01) ==
PROVIDERS: Visit Provider Podiatrist Foot & Ankle Surgery
DX: S86.001A Unspecified injury of right Achilles tendon, initial encounter (principal); S92.001A Unspecified fracture of right calcaneus, initial encounter for closed fracture; S92.151A Displaced avulsion fracture (chip fracture) of right talus, initial encounter for closed fracture; S82.831A Other fracture of upper and lower end of right fibula, initial encounter for closed fracture; X58.XXXA Exposure to other specified factors, initial encounter; Y93.67 Activity, basketball; R60.0 Localized edema; M25.471 Effusion, right ankle
CPT/HCPCS: 73721

== ENCOUNTER → 2023-02-02 14:21 | Outpatient (BNVA) | payer BC, MEDICAID, SELFPAY | PROVIDERS: Visit Provider Podiatrist Foot & Ankle Surgery | DX: S86.001D Unspecified injury of right Achilles tendon, subsequent encounter; S99.911D Unspecified injury of right ankle, subsequent encounter; S92.154D Nondisplaced avulsion fracture (chip fracture) of right talus, subsequent encounter for fracture with routine healing; X58.XXXD Exposure to other specified factors, subsequent encounter; Y93.67 Activity, basketball | CPT/HCPCS: 73610 ==

== ENCOUNTER → 2023-03-29 15:10 | Outpatient (BNVA) | payer BC, MEDICAID, SELFPAY | PROVIDERS: Referring Provider Podiatrist Foot & Ankle Surgery; Visit Provider Orthopaedic Surgery | DX: M54.2 Cervicalgia (principal); R20.0 Anesthesia of skin | CPT/HCPCS: 72040 ==